=== PATIENT | female | born 1975 | race Caucasian/White ===

== ENCOUNTER 2024-09-08 19:20 | Emergency (ER) | payer OTHER, SELFPAY ==
[2024-09-08 19:23] VITALS: BP 139/84
--- NOTE | 2024-09-08 19:59 | ED.SKININJ ---
HPI-Injury
General
Chief Complaint: Skin Problem
Source: patient
Time Seen by Provider: 09/08/24 19:52
History of Present Illness-Injury
Initial Injury comments:
49yoF with no significant past medical history presenting for evaluation of a chin laceration. Patient was walking when she tripped and fell forward striking her chin against the sidewalk. There was no LOC and she was able to get up right away. She
has no other complaints at this time. No blood thinners. Unknown last Tdap.
Phy Exam
General Physical Exam
General Presentation: well appearing and no apparent distress
General age: appears stated age
General Skin: warm and dry
General Habitus: normal
General Mental: alert
ENT Exam
ENT Exam: normocephalic and other (Gaping 3cm chin laceration noted. No surrounding bony tenderness. Patient able to open/close jaw. No malocclusion noted.)
Pulmonary Exam
Pulmonary Exam: no respiratory distress
[place] Coma Scale
Eye Opening: Spontaneous
Verbal Response: Oriented
Motor Response: Obeys Commands
GCS Total Score: 15
Skin Exam
Skin Exam: normal color and warm/dry
Psychiatric Exam
Psychiatric Exam: normal mood/affect
Course
Orders/Labs/Results
Orders:
Orders
09/08/24 19:59
Tetanus/Diphth/Acelpertussis [Adacel] 0.5 ml IM .ONCE ONE
Vital Signs
Initial and Last Documented VS:
Initial Vital Signs
Temp Pulse Resp BP Pulse Ox
98.1 F 83 20 139/84 99
09/08/24 19:23 09/08/24 19:23 09/08/24 19:23 09/08/24 19:23 09/08/24 19:23
Last Documented Vital Signs
Temp Pulse Resp BP Pulse Ox
98.1 F 83 20 139/84 99
09/08/24 19:23 09/08/24 19:23 09/08/24 19:23 09/08/24 19:23 09/08/24 19:23
Procedures
Laceration Closure
Chin:
Status of Wound: clean
Size of Wound in cm: 3
Description of Wound Edges: ragged
Preparation: cleaned with saline and cleaned with Betadine
Anesthesia: 1% Lidocaine with epi
Revision/Debridement: routine- no revision
Wound exploration: explored to base- no FB
Type of Closure: layered closure
Skin Closure Material: 5-0 nylon and 5-0 chromic gut
Number of sutures: 6
Additional information:
Dermal layer repaired with 2 chromic gut sutures. Skin approximated with 4 simple interrupted nylon sutures.
MDM/Problems Addressed
Differential Diagnosis Includes:
49yoF here with a chin laceration after tripping and falling on a sidewalk. No LOC. VSS. Gaping chin laceration present on exam. Laceration was irrigated and repaired as above. Patient tolerated well. Home wound care discussed. Tdap updated. She was
advised to have sutures removed in 5-7 days. ED return precautions discussed. She was discharged in stable condition.
*Critical Care Note
Total Time (30-74mins, 75-104mins- exclusive of procedures): Not Applicable
ED Attending Note
-
Portions of this chart may have been created with voice recognition software.� Occasional wrong word or��sound alike� substitutions may have occurred due to the inherent limitations of voice recognition software.
Discharge Plan
Departure
Patient Disposition: Home (Routine Discharge)
Date of Disposition: 09/08/24
Time of Disposition: 20:35
Patient with high blood pressure during this ER visit?: No
Discharge Problem:
Chin laceration
Instructions: Laceration Repair With Stitches ED
Prescriptions:
No Action
Vitamins
Activity Restrictions/Additional Instructions:
Keep wound clean and dry. Do not get wet for first 24 hours.
Sutures need to be removed in 5-7 days. Return to the ER with any signs of infection (redness, drainage, warmth).
Interventions
Interventions:
*Risk Screen - Suicide Last Done: 09/08/24 19:23
*General Assessment Last Done: 09/08/24 19:23
*Neglect/Abuse Screening Last Done: 09/08/24 19:23
ED- Fall Risk Assessment Last Done: 09/08/24 20:48
*ED COVID-19 Vaccine History Last Done: 09/08/24 20:48
*Nursing Disposition Last Done: 09/08/24 20:49
ED-Skin Assessment Last Done: 09/08/24 20:48
Discharge Date and Time
Discharge Date/Time: 09/08/24 20:49
Print Language: ANDORRAN
[2024-09-08] MEDS: ADACEL 0.5 ML IM (20:38)
== END 2024-09-08 20:49 | disposition home or self-care (01) ==
LOC: EMR 19:20
PROVIDERS: EMERGENCY PHYSICIAN Student in an Organized Health Care Education/Training Program; FAMILY PHYSICIAN Family Medicine
DX: S01.81XA Laceration without foreign body of other part of head, initial encounter (principal); W01.0XXA Fall on same level from slipping, tripping and stumbling without subsequent striking against object, initial encounter; Z23 Encounter for immunization
CPT/HCPCS: 12052; 99282; 90471; 90715